=== PATIENT | female | born 1955 ===

== ENCOUNTER → 2023-02-07 | Outpatient (CLI) | payer MEDICARE ==
[2023-02-08 10:26] LABS: Candida species (DNA Probe) Negative (NEGATIVE); G. vaginalis (DNA Probe) Negative (NEGATIVE); T. vaginalis (DNA Probe) Negative (NEGATIVE)
== END | disposition home or self-care (01) ==
LOC: LAB 14:39 → LAB SHORT 14:39
PROVIDERS: Family Medicine
DX: L29.2 Pruritus vulvae (principal)
CPT/HCPCS: 87480; 87510; 87660